=== PATIENT | male | born 1995 | race Caucasian/White ===

== ENCOUNTER 2016-11-04 08:42 | Emergency (ER) | payer MEDICAID, OTHER ==
[~2016-11-04] VITALS: Ht 185.4 cm; Wt 83.7 kg
[2016-11-04 08:44] VITALS: BP 130/92
[2016-11-04] MEDS ORDERED: EPIN0.3A3 SQ (09:47)
== END 2016-11-04 10:14 | disposition home or self-care (01) ==
LOC: ED 09:42
DX: D84.1 Defects in the complement system (principal)
CPT/HCPCS: 36415; 85025; 86160; 86161; 99284